=== PATIENT | female | born 1965 | race African-American/Black ===

== ENCOUNTER 2022-11-19 13:05 | Inpatient (IN) | payer OTHER ==
[2022-11-19 15:16] LABS: BASO % 0.7 % (0-2.0); EOS % 1.6 % (0-4.5); HEMATOCRIT 25.4 % (32.4-45.2); HEMOGLOBIN 8.4 GM/dL (10.7-15.3); LYMPH % 7.7 % (8-40); MCH 28.9 pg (25.7-33.7); MCHC 33.1 g/dl (32.0-36.0); MEAN CELL VOLUME 87.1 fl (80-96); MEAN PLT VOLUME 7.9 fl (7.5-11.1); MONO % 8.7 % (3.8-10.2); NEUT % 81.3 % (42.8-82.8); PLATELET COUNT 390 10^3/uL (134-434); RBC 2.91 M/mm3 (3.60-5.2); RDW 20.6 % (11.6-15.6); WHITE BLOOD COUNT 6.9 K/mm3 (4.0-10.0)
[2022-11-19 15:24] LABS: INR 1.44 (0.83-1.09); PROTHROMBIN TIME (PATIENT) 16.7 SEC (9.7-13.0)
[2022-11-19 15:26] LABS: ACTIVATED PTT 38.5 SECONDS (25.2-36.5)
[2022-11-19 15:56] LABS: ALBUMIN 1.8 g/dl (3.4-5.0); CALCIUM 8.2 mg/dL (8.5-10.1)
[2022-11-19 15:57] LABS: BLOOD UREA NITROGEN 12.8 mg/dL (7-18)
[2022-11-19 16:01] LABS: BILIRUBIN,TOTAL 0.4 mg/dL (0.2-1); TOT PROT 6.8 g/dl (6.4-8.2)
[2022-11-19 16:04] LABS: ANISOCYTOSIS 1+; MACROCYTOSIS 0
[2022-11-19] MEDS ORDERED: PIPERACILLIN/TAZOB 4.5 GM 4.5 GM in DEXTROSE 5%-WATER 100 ML IVPB ONE (18:27)
[2022-11-19] MEDS ORDERED: SODIUM CHLORIDE 0.9% 500 ML INFUS.BAG IV ONE (18:35)
[2022-11-19] MEDS ORDERED: PIPERACILLIN/TAZOB 4.5 GM 4.5 GM/100 ML BAG IVPB ONE (19:11)
[2022-11-19] MEDS ORDERED: ACETAMINOPHEN 500 MG TABLET (FP) PO PRN (20:50)
[2022-11-19] MEDS ORDERED: APIXABAN 5 MG TABLET ONE (21:06)
[2022-11-19] MEDS ORDERED: GABAPENTIN 300 MG CAPSULE ONE (21:07)
[2022-11-19] MEDS ORDERED: ATORVASTATIN CA 40 MG TABLET (FP) ONE (21:07)
[2022-11-19] MEDS: ATORVASTATIN CA 40 MG TABLET (FP) PO SCH (21:12)
[2022-11-19] MEDS: GABAPENTIN 300 MG CAPSULE PO SCH (21:12)
[2022-11-19] MEDS: APIXABAN 5 MG TABLET PO SCH (21:12)
[2022-11-19 21:40] LABS: RETICULOCYTES 1.33 % (0.5-1.5)
[2022-11-19] MEDS: LACTATED RINGERS SOLUTION 1,000 ML/1,000 ML INFUS.BAG IV SCH (21:40)
[2022-11-19] MEDS ORDERED: INSULIN (LEVEMIR) 100 UNITS/ML UNITS SQ SCH (22:00)
[2022-11-19 22:15] LABS: ERYTHROCYTE SEDIMENTATION RATE 108 mm/hr (0-30)
[2022-11-19] MEDS: INSULIN SLIDING SCALE (NOVOLOG) 1 VIAL SQ SCH (22:28)
[2022-11-20] MEDS ORDERED: PIPERACILLIN/TAZOB 3.375 GM 3.375 GM in DEXTROSE 5%-WATER - 50 ML IVPB SCH ×3 (01:00→18:00)
[2022-11-20] MEDS ORDERED: PIPERACILLIN/TAZOB 3.375 GM 3.375 GM/50 ML BAG IVPB ONE ×2 (01:29→10:36)
[2022-11-20] MEDS ORDERED: GABAPENTIN 300 MG CAPSULE ONE (06:31)
[2022-11-20] MEDS ORDERED: ACETAMINOPHEN 325 MG TABLET (FP) ONE (06:35)
[2022-11-20] MEDS: ACETAMINOPHEN 500 MG TABLET (FP) PO PRN ×2 (06:37→21:00)
[2022-11-20] MEDS: GABAPENTIN 300 MG CAPSULE PO SCH ×3 (06:38→22:43)
[2022-11-20 07:08] LABS: BASO % 0.5 % (0-2.0); HEMOGLOBIN 7.6 GM/dL (10.7-15.3); LYMPH % 11.1 % (8-40); MCH 29.1 pg (25.7-33.7); MCHC 33.2 g/dl (32.0-36.0); MEAN CELL VOLUME 87.7 fl (80-96); MEAN PLT VOLUME 7.4 fl (7.5-11.1); MONO % 13.7 % (3.8-10.2); NEUT % 72.7 % (42.8-82.8); PLATELET COUNT 315 10^3/uL (134-434); RBC 2.62 M/mm3 (3.60-5.2); RDW 20.5 % (11.6-15.6); WHITE BLOOD COUNT 5.4 K/mm3 (4.0-10.0)
[2022-11-20 07:56] LABS: ALBUMIN 1.7 g/dl (3.4-5.0)
[2022-11-20 07:57] LABS: BLOOD UREA NITROGEN 12.5 mg/dL (7-18); CALCIUM 7.9 mg/dL (8.5-10.1)
[2022-11-20 07:59] LABS: CREATININE 0.9 mg/dL (0.55-1.3)
[2022-11-20 08:00] LABS: PHOSPHOROUS 3.4 mg/dL (2.5-4.9)
[2022-11-20] MEDS: INSULIN SLIDING SCALE (NOVOLOG) 1 VIAL SQ SCH ×4 (08:00→21:01)
[2022-11-20 08:01] LABS: BILIRUBIN,TOTAL 0.3 mg/dL (0.2-1); TOT PROT 6.2 g/dl (6.4-8.2)
[2022-11-20] MEDS ORDERED: VANCOMYCIN 1 GM in D5W (PRE-DOCKED) 1,000 MG/250 ML IVPB ONE (10:16)
[2022-11-20] MEDS ORDERED: PANTOPRAZOLE 40 MG TABLET PO ONE (10:35)
[2022-11-20] MEDS ORDERED: APIXABAN 5 MG TABLET ONE (10:35)
[2022-11-20] MEDS ORDERED: amLODIPine BESYLATE 10 MG TABLET (FP) ONE (10:35)
[2022-11-20] MEDS ORDERED: FLUCONAZOLE 100 MG TABLET (UD) ONE (10:35)
[2022-11-20] MEDS ORDERED: VANCOMYCIN/WATER FOR INJ (PEG) 1,000 MG/200 ML BAG IVPB ONE (10:36)
[2022-11-20] MEDS: amLODIPine BESYLATE 10 MG TABLET (FP) PO SCH (11:00)
[2022-11-20] MEDS: APIXABAN 5 MG TABLET PO SCH (11:00)
[2022-11-20] MEDS: FLUCONAZOLE 100 MG TABLET (UD) PO SCH (11:00)
[2022-11-20] MEDS: PANTOPRAZOLE 40 MG TABLET PO SCH (11:00)
[2022-11-20] MEDS: PIPERACILLIN/TAZOB 3.375 GM 3.375 GM in DEXTROSE 5%-WATER - 50 ML IVPB SCH ×2 (11:20→20:45)
[2022-11-20] MEDS ORDERED: VANCOMYCIN 1 GM/200 ML PREMIX BAG (RESTRICTED TO ID ONLY) IVPB ONE (11:45)
[2022-11-20] MEDS ORDERED: FENTANYL CITRATE/PF 50 MCG/ML VIAL ONE (13:35)
[2022-11-20] MEDS ORDERED: MIDAZOLAM HCL 2 MG/2 ML SINGLE DOSE VIAL ONE (13:35)
[2022-11-20] MEDS ORDERED: SODIUM CHLORIDE 500 ML IV ONE (14:30)
[2022-11-20] MEDS ORDERED: MIDAZOLAM HCL 2 MG/2 ML SINGLE DOSE VIAL IVPUSH ONE (14:48)
[2022-11-20] MEDS: FENTANYL CITRATE/PF 50 MCG/ML VIAL IVPUSH SCH ×2 (14:48→15:00)
[2022-11-20 19:23] LABS: PHOSPHOROUS 4.2 mg/dL (2.5-4.9)
[2022-11-20] MEDS: LACTATED RINGERS SOLUTION 1,000 ML/1,000 ML INFUS.BAG IV SCH (20:46)
[2022-11-20] MEDS: ATORVASTATIN CA 40 MG TABLET (FP) PO SCH (21:01)
[2022-11-20] MEDS: oxyCODONE HCL 5 MG TABLET PO PRN (22:44)
[2022-11-20] MEDS: ACETAMINOPHEN 325 MG TABLET (FP) PO PRN (22:45)
[2022-11-21] MEDS: PIPERACILLIN/TAZOB 3.375 GM 3.375 GM in DEXTROSE 5%-WATER - 50 ML IVPB SCH ×6 (02:22→17:12)
[2022-11-21] MEDS: GABAPENTIN 300 MG CAPSULE PO SCH ×3 (05:22→21:43)
[2022-11-21] MEDS: oxyCODONE HCL 5 MG TABLET PO PRN ×4 (05:22→21:43)
[2022-11-21] MEDS: ACETAMINOPHEN 325 MG TABLET (FP) PO PRN ×4 (05:24→21:42)
[2022-11-21] MEDS: INSULIN SLIDING SCALE (NOVOLOG) 1 VIAL SQ SCH ×4 (06:16→21:43)
[2022-11-21 09:23] LABS: BASO % 0.6 % (0-2.0); EOS % 1.4 % (0-4.5); HEMATOCRIT 22.4 % (32.4-45.2); HEMOGLOBIN 7.6 GM/dL (10.7-15.3); LYMPH % 8.2 % (8-40); MCH 29.5 pg (25.7-33.7); MEAN CELL VOLUME 86.7 fl (80-96); MEAN PLT VOLUME 7.1 fl (7.5-11.1); MONO % 14.5 % (3.8-10.2); NEUT % 75.3 % (42.8-82.8); PLATELET COUNT 284 10^3/uL (134-434); RBC 2.58 M/mm3 (3.60-5.2); RDW 20.1 % (11.6-15.6); WHITE BLOOD COUNT 6.8 K/mm3 (4.0-10.0)
[2022-11-21 10:05] LABS: CALCIUM 8.1 mg/dL (8.5-10.1)
[2022-11-21 10:06] LABS: ALBUMIN 1.5 g/dl (3.4-5.0); BLOOD UREA NITROGEN 8.7 mg/dL (7-18)
[2022-11-21 10:09] LABS: CREATININE 0.9 mg/dL (0.55-1.3)
[2022-11-21 10:10] LABS: BILIRUBIN,TOTAL 0.2 mg/dL (0.2-1); TOT PROT 5.9 g/dl (6.4-8.2)
[2022-11-21] MEDS: amLODIPine BESYLATE 10 MG TABLET (FP) PO SCH (10:12)
[2022-11-21] MEDS: PANTOPRAZOLE 40 MG TABLET PO SCH (10:12)
[2022-11-21] MEDS: FLUCONAZOLE 100 MG TABLET (UD) PO SCH (11:39)
[2022-11-21 14:43] VITALS: BMI 23.3
[2022-11-21] MEDS: ATORVASTATIN CA 40 MG TABLET (FP) PO SCH (21:42)
[2022-11-22] MEDS: PIPERACILLIN/TAZOB 3.375 GM 3.375 GM in DEXTROSE 5%-WATER - 50 ML IVPB SCH ×3 (01:53→17:16)
[2022-11-22] MEDS: oxyCODONE HCL 5 MG TABLET PO PRN ×3 (05:51→22:08)
[2022-11-22] MEDS: ACETAMINOPHEN 325 MG TABLET (FP) PO PRN ×3 (05:52→22:09)
[2022-11-22] MEDS: GABAPENTIN 300 MG CAPSULE PO SCH ×3 (05:53→21:34)
[2022-11-22] MEDS: INSULIN SLIDING SCALE (NOVOLOG) 1 VIAL SQ SCH ×4 (06:49→21:34)
[2022-11-22] MEDS: FLUCONAZOLE 100 MG TABLET (UD) PO SCH (09:46)
[2022-11-22] MEDS: amLODIPine BESYLATE 10 MG TABLET (FP) PO SCH (09:46)
[2022-11-22] MEDS: PANTOPRAZOLE 40 MG TABLET PO SCH (09:46)
[2022-11-22] MEDS: ATORVASTATIN CA 40 MG TABLET (FP) PO SCH (21:34)
[2022-11-23] MEDS: PIPERACILLIN/TAZOB 3.375 GM 3.375 GM in DEXTROSE 5%-WATER - 50 ML IVPB SCH ×3 (01:19→17:07)
[2022-11-23] MEDS: GABAPENTIN 300 MG CAPSULE PO SCH ×3 (06:05→21:08)
[2022-11-23] MEDS: INSULIN SLIDING SCALE (NOVOLOG) 1 VIAL SQ SCH ×4 (06:15→21:53)
[2022-11-23] MEDS: FLUCONAZOLE 100 MG TABLET (UD) PO SCH (10:46)
[2022-11-23] MEDS: PANTOPRAZOLE 40 MG TABLET PO SCH (10:47)
[2022-11-23] MEDS: oxyCODONE HCL 5 MG TABLET PO PRN ×2 (14:51→21:09)
[2022-11-23] MEDS: ACETAMINOPHEN 325 MG TABLET (FP) PO PRN ×2 (14:52→21:08)
[2022-11-23] MEDS: ATORVASTATIN CA 40 MG TABLET (FP) PO SCH (21:08)
[2022-11-24] MEDS: PIPERACILLIN/TAZOB 3.375 GM 3.375 GM in DEXTROSE 5%-WATER - 50 ML IVPB SCH ×3 (01:12→17:38)
[2022-11-24] MEDS: GABAPENTIN 300 MG CAPSULE PO SCH ×3 (06:07→22:31)
[2022-11-24] MEDS: INSULIN SLIDING SCALE (NOVOLOG) 1 VIAL SQ SCH ×4 (06:09→22:37)
[2022-11-24] MEDS: oxyCODONE HCL 5 MG TABLET PO PRN ×2 (10:08→18:31)
[2022-11-24] MEDS: PANTOPRAZOLE 40 MG TABLET PO SCH (10:09)
[2022-11-24] MEDS: FLUCONAZOLE 100 MG TABLET (UD) PO SCH (10:09)
[2022-11-24] MEDS: APIXABAN 5 MG TABLET PO SCH (22:31)
[2022-11-24] MEDS: ACETAMINOPHEN 500 MG TABLET (FP) PO PRN (22:31)
[2022-11-24] MEDS: ATORVASTATIN CA 40 MG TABLET (FP) PO SCH (22:31)
[2022-11-25] MEDS: PIPERACILLIN/TAZOB 3.375 GM 3.375 GM in DEXTROSE 5%-WATER - 50 ML IVPB SCH ×3 (01:23→17:18)
[2022-11-25] MEDS: oxyCODONE HCL 5 MG TABLET PO PRN (01:36)
[2022-11-25] MEDS: GABAPENTIN 300 MG CAPSULE PO SCH ×3 (06:11→22:53)
[2022-11-25] MEDS: INSULIN SLIDING SCALE (NOVOLOG) 1 VIAL SQ SCH ×4 (08:16→22:56)
[2022-11-25] MEDS: APIXABAN 5 MG TABLET PO SCH ×2 (09:12→22:53)
[2022-11-25] MEDS: PANTOPRAZOLE 40 MG TABLET PO SCH (09:12)
[2022-11-25] MEDS: ACETAMINOPHEN 500 MG TABLET (FP) PO PRN ×2 (09:12→22:53)
[2022-11-25] MEDS: FLUCONAZOLE 100 MG TABLET (UD) PO SCH (09:13)
[2022-11-25 09:14] LABS: BASO % 0.3 % (0-2.0); EOS % 1.4 % (0-4.5); HEMATOCRIT 26.6 % (32.4-45.2); HEMOGLOBIN 8.9 GM/dL (10.7-15.3); LYMPH % 8.8 % (8-40); MCH 28.6 pg (25.7-33.7); MCHC 33.4 g/dl (32.0-36.0); MEAN CELL VOLUME 85.7 fl (80-96); MEAN PLT VOLUME 7.1 fl (7.5-11.1); MONO % 15.6 % (3.8-10.2); NEUT % 73.9 % (42.8-82.8); PLATELET COUNT 352 10^3/uL (134-434); RDW 19.4 % (11.6-15.6); WHITE BLOOD COUNT 6.5 K/mm3 (4.0-10.0)
[2022-11-25 09:36] LABS: ALBUMIN 1.5 g/dl (3.4-5.0); BLOOD UREA NITROGEN 8.4 mg/dL (7-18)
[2022-11-25 09:39] LABS: CREATININE 0.8 mg/dL (0.55-1.3)
[2022-11-25 09:41] LABS: BILIRUBIN,TOTAL 0.3 mg/dL (0.2-1); TOT PROT 6.3 g/dl (6.4-8.2)
[2022-11-25] MEDS ORDERED: POTASSIUM CHLORIDE TABS 20 MEQ TABLET.ER (FP) PO ONE (15:26)
[2022-11-25] MEDS ORDERED: ONDANSETRON 4 MG/2 ML VIAL IVPUSH PRN (17:06)
[2022-11-25] MEDS: ATORVASTATIN CA 40 MG TABLET (FP) PO SCH (22:53)
[2022-11-26] MEDS: oxyCODONE HCL 5 MG TABLET PO PRN ×3 (01:35→21:51)
[2022-11-26] MEDS: PIPERACILLIN/TAZOB 3.375 GM 3.375 GM in DEXTROSE 5%-WATER - 50 ML IVPB SCH ×3 (01:36→17:03)
[2022-11-26] MEDS: ACETAMINOPHEN 500 MG TABLET (FP) PO PRN ×3 (06:12→21:51)
[2022-11-26] MEDS: GABAPENTIN 300 MG CAPSULE PO SCH ×3 (06:13→21:50)
[2022-11-26] MEDS: INSULIN SLIDING SCALE (NOVOLOG) 1 VIAL SQ SCH ×4 (06:44→22:02)
[2022-11-26 09:13] LABS: BASO % 0.3 % (0-2.0); HEMATOCRIT 24.5 % (32.4-45.2); HEMOGLOBIN 8.1 GM/dL (10.7-15.3); MCH 28.1 pg (25.7-33.7); MEAN CELL VOLUME 85.3 fl (80-96); MEAN PLT VOLUME 7.2 fl (7.5-11.1); MONO % 15.1 % (3.8-10.2); NEUT % 72.6 % (42.8-82.8); PLATELET COUNT 347 10^3/uL (134-434); RBC 2.87 M/mm3 (3.60-5.2); RDW 19.6 % (11.6-15.6)
[2022-11-26 09:32] LABS: ALBUMIN 1.5 g/dl (3.4-5.0); BLOOD UREA NITROGEN 8.9 mg/dL (7-18); CALCIUM 8.2 mg/dL (8.5-10.1); MAGNESIUM 1.4 mg/dL (1.8-2.4)
[2022-11-26 09:35] LABS: CREATININE 0.8 mg/dL (0.55-1.3)
[2022-11-26 09:37] LABS: BILIRUBIN,TOTAL 0.5 mg/dL (0.2-1)
[2022-11-26 09:38] LABS: TOT PROT 6.3 g/dl (6.4-8.2)
[2022-11-26] MEDS: FLUCONAZOLE 100 MG TABLET (UD) PO SCH (09:44)
[2022-11-26] MEDS: PANTOPRAZOLE 40 MG TABLET PO SCH (09:44)
[2022-11-26] MEDS: APIXABAN 5 MG TABLET PO SCH ×2 (09:44→21:50)
[2022-11-26] MEDS ORDERED: ACETAMINOPHEN 325 MG TABLET (FP) PO PRN (19:30)
[2022-11-26] MEDS: ATORVASTATIN CA 40 MG TABLET (FP) PO SCH (21:51)
[2022-11-26 23:07] VITALS: RESP 20
[2022-11-27] MEDS: PIPERACILLIN/TAZOB 3.375 GM 3.375 GM in DEXTROSE 5%-WATER - 50 ML IVPB SCH ×2 (02:32→09:39)
[2022-11-27] MEDS: GABAPENTIN 300 MG CAPSULE PO SCH (06:14)
[2022-11-27] MEDS: INSULIN SLIDING SCALE (NOVOLOG) 1 VIAL SQ SCH ×2 (06:14→12:16)
[2022-11-27 08:55] LABS: BASO % 0.5 % (0-2.0); EOS % 1.7 % (0-4.5); HEMATOCRIT 27.8 % (32.4-45.2); HEMOGLOBIN 9.3 GM/dL (10.7-15.3); LYMPH % 13.8 % (8-40); MCH 28.4 pg (25.7-33.7); MCHC 33.6 g/dl (32.0-36.0); MEAN CELL VOLUME 84.7 fl (80-96); MEAN PLT VOLUME 7.2 fl (7.5-11.1); MONO % 15.3 % (3.8-10.2); NEUT % 68.7 % (42.8-82.8); PLATELET COUNT 526 10^3/uL (134-434); RBC 3.28 M/mm3 (3.60-5.2); RDW 19.5 % (11.6-15.6); WHITE BLOOD COUNT 7.3 K/mm3 (4.0-10.0)
[2022-11-27 09:37] LABS: CALCIUM 8.4 mg/dL (8.5-10.1)
[2022-11-27] MEDS: oxyCODONE HCL 5 MG TABLET PO PRN (09:38)
[2022-11-27 09:39] LABS: BLOOD UREA NITROGEN 7.3 mg/dL (7-18)
[2022-11-27] MEDS: APIXABAN 5 MG TABLET PO SCH (09:39)
[2022-11-27] MEDS: PANTOPRAZOLE 40 MG TABLET PO SCH (09:39)
[2022-11-27 09:41] LABS: CREATININE 0.8 mg/dL (0.55-1.3)
[2022-11-27 09:47] VITALS: BP 138/71; PULSE 103; TEMP 99.1
== END 2022-11-27 14:13 | disposition home health service (06) | DRG 279 ==
LOC: JER 13:05 → JERBED 18:17 → OBSVTOIN 21:28 → J5S 11-20 20:24
PROVIDERS: ADMIT Internal Medicine; ATTEND Internal Medicine
PROC: 0F9130Z Drainage of Right Lobe Liver with Drainage Device, Percutaneous Approach (ICD-10-PCS; principal; 2022-11-20)
DX: K75.0 Abscess of liver (principal); E78.5 Hyperlipidemia, unspecified; D64.9 Anemia, unspecified; T85.590A Other mechanical complication of bile duct prosthesis, initial encounter; R94.31 Abnormal electrocardiogram [ECG] [EKG]; D63.8 Anemia in other chronic diseases classified elsewhere; B37.0 Candidal stomatitis; Z79.4 Long term (current) use of insulin; R64 Cachexia; E46 Unspecified protein-calorie malnutrition; I12.9 Hypertensive chronic kidney disease with stage 1 through stage 4 chronic kidney disease, or unspecified chronic kidney disease; E11.22 Type 2 diabetes mellitus with diabetic chronic kidney disease; N18.9 Chronic kidney disease, unspecified; C25.9 Malignant neoplasm of pancreas, unspecified; T85.898A Other specified complication of other internal prosthetic devices, implants and grafts, initial encounter; Y83.8 Other surgical procedures as the cause of abnormal reaction of the patient, or of later complication, without mention of misadventure at the time of the procedure
CPT/HCPCS: 36415; 49405; 74177-TC; 80048; 80053; 82962; 82977; 83036; 83735; 84100; 85025; 85045; 85610; 85651; 85730; 86140; 86850; 86900; 86901; 87070; 87075; 87102; 87116; 87186; 87205; 87206; 87210; 93005; 93010; 99285-25; C9803-CS; G0378; Q9967; U0003; U0005